=== PATIENT | male | born 2000 | race Caucasian/White ===

== ENCOUNTER 2022-07-20 01:29 | Emergency (ER) | payer OTHER ==
[~2022-07-20] VITALS: Ht 177.8 cm; Wt 63.6 kg
[2022-07-20 01:41] VITALS: TEMP 98.5
[2022-07-20] MEDS ORDERED: PREDNISONE20 MG PO (02:51)
[2022-07-20] MEDS ORDERED: CEPHALEXIN500 M1 PO (02:51)
[2022-07-20 03:13] VITALS: BP 126/70; PULSE 76
== END 2022-07-20 03:13 | disposition home or self-care (01) ==
LOC: COL.ER 01:29
DX: R59.0 Localized enlarged lymph nodes (principal); F17.210 Nicotine dependence, cigarettes, uncomplicated; Z28.310 Unvaccinated for COVID-19
CPT/HCPCS: J7512